=== PATIENT | male | born 1995 | race Caucasian/White ===

== ENCOUNTER → 2017-06-10 13:08 | Outpatient (CLI) | payer SELFPAY ==
--- NOTE | 2017-06-10 13:10 | XR_ITS ---
XR ankle LT min 3V HISTORY: Follow-up ORIF/fracture ITS.REASON: status post ORIF left ankle/ dos 03/15/17 ORDERING PHYSICIAN: Dann Kim MD PATIENT AGE: 21 years COMPARISON: 04/26/2017 FINDINGS: The third screw from the bottom has lost its screw head as before and passes slightly obliquely to the metallic plate similar to the previous exam. The fifth screw from the bottom has a small or partially absent screw head as before slightly passes through the plate. Intramedullary josefa remains in place in the distal fibula with good alignment of the fracture fragments . Posterior distal tibial fracture also once again noted. Fracture line of the distal tibia medially once again noted extending to the articular surface. There may be some callus formation at the articular surface. 1. No change status post ORIF tib-fib fracture as described above. 2. Fractures remain in good alignment with fracture line is less apparent consistent with healing
== END ==
PROVIDERS: PCP Emergency Medicine; Visit Provider Orthopaedic Surgery
DX: Z48.89 Encounter for other specified surgical aftercare (principal)
CPT/HCPCS: 73610

== ENCOUNTER 2022-11-06 16:22 | Emergency (ER) | payer SELFPAY ==
[2022-11-06 16:30] VITALS: BP 123/105; PULSE 74; RESP 22; TEMP 36.8; O2SAT 98; BMI 23.5
--- NOTE | 2022-11-06 16:34 | XR_ITS ---
PROCEDURE INFORMATION: Exam: XR Right Ankle Exam date and time: 11/06/2022 4:44 PM Age: 27 years old Clinical indication: Injury or trauma; Other: Kicked by horse; Blunt trauma; Knee and lower leg; Right; Additional info: Knee/lower leg kicked by a horse, pain/swelling/bruising TECHNIQUE: Imaging protocol: Radiologic exam of the right ankle. Views: 3 or more views. COMPARISON: CR XR FOOT RT MIN 3V 11/06/2022 4:42 PM FINDINGS: Bones/joints: Normal. Soft tissues: Normal. IMPRESSION: No acute findings.
--- NOTE | 2022-11-06 16:34 | XR_ITS ---
PROCEDURE INFORMATION: Exam: XR Right Knee Exam date and time: 11/06/2022 4:46 PM Age: 27 years old Clinical indication: Injury or trauma; Other: Kicked by horse; Blunt trauma; Knee and lower leg; Right; Additional info: Knee/lower leg kicked by a horse, pain/swelling/bruising TECHNIQUE: Imaging protocol: Radiologic exam of the right knee. Views: 3 views. COMPARISON: CR XR ANKLE RT MIN 3V 11/06/2022 4:44 PM FINDINGS: Bones/joints: Tiny nondisplaced avulsion fracture of fibular head suspected. No dislocation. Soft tissues: Normal. Other findings: No conspicuous effusion. IMPRESSION: Tiny nondisplaced fibular head avulsion fracture suspected.
--- NOTE | 2022-11-06 16:34 | XR_ITS ---
PROCEDURE INFORMATION: Exam: XR Right Foot Exam date and time: 11/06/2022 4:42 PM Age: 27 years old Clinical indication: Injury or trauma; Other: Kicked by horse; Blunt trauma; Knee and lower leg; Right; Additional info: Knee/lower leg kicked by a horse, pain/swelling/bruising TECHNIQUE: Imaging protocol: Radiologic exam of the right foot. Views: 3 or more views. COMPARISON: No relevant prior studies available. FINDINGS: Bones/joints: Normal. Soft tissues: Normal. IMPRESSION: No acute findings.
--- NOTE | 2022-11-06 16:34 | XR_ITS ---
PROCEDURE INFORMATION: Exam: XR Right Tibia and Fibula Exam date and time: 11/06/2022 4:48 PM Age: 27 years old Clinical indication: Injury or trauma; Other: Kicked by horse; Blunt trauma; Knee and lower leg; Right; Additional info: Knee/lower leg kicked by a horse, pain/swelling/bruising TECHNIQUE: Imaging protocol: Radiologic exam of the right tibia and fibula. Views: 2 views. COMPARISON: CR XR ANKLE RT MIN 3V 11/06/2022 4:44 PM FINDINGS: Bones/joints: Normal. Soft tissues: Normal. IMPRESSION: No acute findings.
--- NOTE | 2022-11-06 17:18 | EXP.UTC ---
Discharge Plan Disposition Patient Disposition: Home, Self-Care Condition: Good Prescriptions Prescriptions: New ibuprofen 800 mg tablet 800 mg PO Q8H PRN (Reason: pain) Qty: 30 0RF Referrals Follow up/Referrals: Ashleigh Nguyễn [Primary Care Provider] - See instructions Activity Restrictions/Add. Instructions Additional Instructions/Restrictions: Call Dr. Patel's office on Wednesday. [phone] for an appointment on Wednesday or . Ice knee 3 times a day for 20 minutes at a time. Use crutches for ambulation. Clinical Impressions Clinical Impression: Avulsion fracture Instructions Patient Instructions: DI for Avulsion Fracture Discharge ED Provider: Cristin Bowens [facility] General Stated complaint: AO 10/30 R Knee pain Mode of Arrival: Ambulatory Source of Information: Patient Limitations: No Limitations Time Seen by Provider: 11/06/22 16:45 Description of Symptoms (Recalled from Triage Doc. by RN): PATIENT C/O PAIN AND BRUISING TO RIGHT LEG FROM KNEE DOWN AFTER GETTING KICKED BY A HORSE ON SIDE OF KNEE AND THEN FALLING DOWN 1 WEEK AGO HEENT Symptoms (Recalled from RN notes): No Resp Symptoms (Recalled from RN notes): No Skin Symptoms (Recalled from RN notes): No MS Symptoms (Recalled from RN notes): Yes Functional Status (Recalled from RN notes): WNL History of Present Illness Provider Complaint: Pt relates that he was kicked on the right knee by a horse on week ago and fell over and hurt leg, ankle, and foot. He states that it has gotten to the point that he can barely move his leg. Related Data Previous Rx's Medication Instructions Recorded ibuprofen 800 mg tablet 800 mg PO Q8H PRN pain #30 tabs 11/06/22 Allergies Allergy/AdvReac Type Severity Reaction Status Date / Time acetaminophen [From [facility]] Allergy Unknown BLISTERS Verified 11/06/22 16:42 TO HANDS AND FEET hydrocodone [From [facility]] Allergy Unknown BLISTERS Verified 11/06/22 16:42 TO HANDS AND FEET Worker's Comp Is this a Worker's Comp case?: No [facility] Disclaimer: The information contained in this section may have been updated after the patient was seen, as this information can be updated by other users. Social History Smoking Status: Never smoker alcohol intake: never current occupational status: employed Travel in the last 8 weeks: None ROS Obtained: Yes All systems reviewed & no additional complaints except as documented Constitutional Constitutional: Reports system reviewed and no additional complaints, except as documented Eyes Eyes: Reports system reviewed and no additional complaints, except as documented ENT Ears, Nose, Mouth, and Throat: Reports system reviewed and no additional complaints, except as documented Cardiovascular Cardiovascular: Reports system reviewed and no additional complaints, except as documented Respiratory Respiratory: Reports system reviewed and no additional complaints, except as documented Gastrointestinal Gastrointestingal: Reports system reviewed and no additional complaints, except as documented Genitourinary Male Genitourinary: Reports system reviewed and no additional complaints, except as documented Musculoskeletal Musculoskeletal: Reports system reviewed and no additional complaints, except as documented, Reports as per HPI, Reports joint stiffness, Reports joint swelling, Reports limited range of motion and Reports radiating pain into limb Integumentary/Breasts Skin/Breast: Reports system reviewed and no additional complaints, except as documented and Reports skin swelling Comments: Bruising Neurologic Neurologic: Reports system reviewed and no additional complaints, except as documented Endocrine Endocrine: Reports system reviewed and no additional complaints, except as documented Hematologic/Lymphatic Henatologic/Lymphatic: Reports system reviewed and no additional complaints, except as documented Allergic/Immunologic Allergic/Immunologic: Reports
[2022-11-06 17:53] VITALS: BP 123/105; PULSE 74; RESP 22; TEMP 36.8; O2SAT 98
== END 2022-11-06 17:58 | disposition home or self-care (01) ==
PROVIDERS: Emergency Provider Nurse Practitioner Family; PCP Nurse Practitioner Family
DX: S82.831A Other fracture of upper and lower end of right fibula, initial encounter for closed fracture (principal); W55.12XA Struck by horse, initial encounter
CPT/HCPCS: 73562; 73590; 73610; 73630; 99204; 99212; G0463